=== PATIENT | male | born 1960 | race Caucasian/White ===

== ENCOUNTER 2018-10-08 07:11 | Emergency (ER) | payer MEDICAID, OTHER ==
[~2018-10-08] VITALS: Ht 175.3 cm; Wt 106.8 kg
[~2018-10-08 07:11] MED LIST: IBUP-1985 PO
[2018-10-08] MEDS ORDERED: BENZ-16 PO (08:10)
[2018-10-08] MEDS ORDERED: LEVO750T21 PO (08:10)
[2018-10-08 08:19] VITALS: BP 144/81
== END 2018-10-08 08:34 | disposition home or self-care (01) ==
LOC: ER 07:12
DX: J20.9 Acute bronchitis, unspecified (principal); Z90.49 Acquired absence of other specified parts of digestive tract; Z88.8 Allergy status to other drugs, medicaments and biological substances; Z79.899 Other long term (current) drug therapy
CPT/HCPCS: 93005; 99283

== ENCOUNTER 2020-09-05 12:52 | Inpatient (IN) | payer BC, MEDICAID, OTHER ==
[~2020-09-05] VITALS: Ht 175.3 cm; Wt 107.0 kg
[2020-09-05 15:06] LABS: BASOPHILS # (AUTO) 0.1 X10'3 (0-0.2); EOSINOPHILS # (AUTO) 0.3 X10'3 (0-0.9); EOSINOPHILS % (AUTO) 4.8 % (0-6); HEMATOCRIT 44.2 % (42.0-52.0); LYMPHOCYTES # (AUTO) 2.1 X10'3 (1.1-4.8); LYMPHOCYTES % (AUTO) 28.6 % (21-51); MEAN CORPUSCULAR HEMOGLOBIN 31.1 PG (27.0-31.0); MEAN CORPUSCULAR HGB CONC 34.9 g/dL (33.0-36.5); MEAN PLATELET VOLUME 7.8 FL (7.4-10.4); MONOCYTES # (AUTO) 0.5 X10'3 (0-0.9); MONOCYTES % (AUTO) 6.6 % (2-12); NEUTROPHILS # (AUTO) 4.3 X10'3 (1.8-7.7); PLATELET COUNT 335 X10'3 (140-440); RED BLOOD COUNT 4.97 X10'6 (4.70-6.10); RED CELL DISTRIBUTION WIDTH 13.3 % (11.5-14.5); WHITE BLOOD COUNT 7.2 X10'3 (4.5-11.0)
[2020-09-05 15:07] LABS: ALANINE AMINOTRANSFERASE 63 U/L (12-78); ALBUMIN 3.8 G/DL (3.4-5.0); ALBUMIN/GLOBULIN RATIO 1.1 (1.1-1.5); ALKALINE PHOSPHATASE 111 IU/L (46-116); ASPARTATE AMINO TRANSFERASE 32 U/L (10-37); BILIRUBIN,TOTAL 0.2 MG/DL (0.1-1.0); BLOOD UREA NITROGEN 19 MG/DL (7-18); BUN/CREATININE RATIO 18.1 (5.4-32.0); CALCIUM 9.3 MG/DL (8.5-10.1); CHLORIDE 105 MMOL/L (99-107); CREATININE 1.05 MG/DL (0.60-1.10); GLUCOSE 166 MG/DL (70-104); SODIUM 140 MMOL/L (135-145); TOTAL PROTEIN 7.4 G/DL (6.4-8.2); eGFR 72 ML/MIN
[2020-09-05 15:08] LABS: HEMOGLOBIN 15.4 g/dl (14.0-17.9)
[2020-09-05 15:14] LABS: ANION GAP 10 (8-16)
[2020-09-05] MEDS ORDERED: aspirin 325mg tablet PO ONE (15:25)
[2020-09-05] MEDS ORDERED: NO HOME MEDS (15:59)
[2020-09-05] MEDS ORDERED: normal saline 500ml IV soln 500 ML IV SCH (17:40)
[2020-09-05] MEDS ORDERED: nitroGLYCERIN 0.4mg SUBLingual tab SL PRN ×2 (17:40→17:55)
[2020-09-05] MEDS ORDERED: aminophylline 250mg/10ml inj. IV PRN (17:55)
[2020-09-05] MEDS ORDERED: regadenoson 0.4mg/5ml syringe IV PRN (17:55)
[2020-09-05] MEDS ORDERED: metoprolol tartrate 1mg/ml inj IV PRN (17:55)
[2020-09-05] MEDS ORDERED: magnesium Cl slow-release 64mg tablet PO PRN (20:10)
[2020-09-05] MEDS ORDERED: magnesium 4gm in 100ml NS 100 ML IV PRN (20:10)
[2020-09-05] MEDS ORDERED: potassium Cl 20 mEq SR tablet PO PRN ×2 (20:10)
[2020-09-05] MEDS ORDERED: magnesium 2GM in 50ml NS 50 ML IV PRN (20:10)
[2020-09-05] MEDS ORDERED: morphine 2 MG/ML inj. syringe IV PRN (20:10)
[2020-09-05] MEDS ORDERED: potassium Cl 40MEQ/1/2NS 520ml 520 ML IV PRN ×2 (20:10)
[2020-09-05 22:00] VITALS: BP 136/77
[2020-09-06] VITALS (8 sets, daily range): BP systolic 143–159; BP diastolic 81–94
[2020-09-06 02:36] LABS: BASOPHILS # (AUTO) 0.1 X10'3 (0-0.2); BASOPHILS % (AUTO) 1.1 % (0-1); EOSINOPHILS # (AUTO) 0.4 X10'3 (0-0.9); EOSINOPHILS % (AUTO) 6.3 % (0-6); HEMATOCRIT 41.5 % (42.0-52.0); HEMOGLOBIN 14.3 g/dl (14.0-17.9); LYMPHOCYTES # (AUTO) 2.3 X10'3 (1.1-4.8); LYMPHOCYTES % (AUTO) 32.3 % (21-51); MEAN CORPUSCULAR HEMOGLOBIN 30.4 PG (27.0-31.0); MEAN CORPUSCULAR HGB CONC 34.5 g/dL (33.0-36.5); MEAN CORPUSCULAR VOLUME 88.2 FL (78-98); MEAN PLATELET VOLUME 6.9 FL (7.4-10.4); MONOCYTES # (AUTO) 0.6 X10'3 (0-0.9); NEUTROPHILS # (AUTO) 3.6 X10'3 (1.8-7.7); NEUTROPHILS % (AUTO) 51.3 % (42-75); PLATELET COUNT 276 X10'3 (140-440); RED BLOOD COUNT 4.71 X10'6 (4.70-6.10); RED CELL DISTRIBUTION WIDTH 13.3 % (11.5-14.5)
[2020-09-06 02:57] LABS: ALBUMIN 3.3 G/DL (3.4-5.0); ANION GAP 12 (8-16); BLOOD UREA NITROGEN 18 MG/DL (7-18); BUN/CREATININE RATIO 17.3 (5.4-32.0); CALCIUM 8.3 MG/DL (8.5-10.1); CHLORIDE 104 MMOL/L (99-107); CHOL/HDL RATIO 13.5 (0.00-4.99); CHOLESTEROL 337 MG/DL (0-200); CREATININE 1.04 MG/DL (0.60-1.10); GLUCOSE 137 MG/DL (70-104); HDL CHOLESTEROL 25 MG/DL (35-60); LDL CHOLESTEROL 102 MG/DL (50-100); MAGNESIUM 2.2 MG/DL (1.5-2.4); SODIUM 139 MMOL/L (135-145); TOTAL CARBON DIOXIDE 23.5 MMOL/L (24-32); eGFR 73 ML/MIN
[2020-09-06 02:58] LABS: POTASSIUM 3.9 MMOL/L (3.5-5.1); TRIGLYCERIDES 1457 MG/DL (20-135)
--- NOTE | 2020-09-06 07:12 | NUR ---
Patient in room ORTHO 4013. I have received report from Danielle GILL and had the opportunity to ask questions and assume patient care.
[2020-09-06] MEDS ORDERED: heparin, porcine 5000 units/ml vial SQ SCH (08:00)
[2020-09-06] MEDS ORDERED: K and/or MAG REPLACEMENT MC SCH (08:00)
[2020-09-06] MEDS ORDERED: PERFLUTREN PROTEIN-A MICROSPHR 0.22 MG/ML 3ML VIAL IV ONE (12:00)
--- NOTE | 2020-09-06 14:22 | NUR ---
Paged Dr. Boles regarding inverted T wave for patient. Page Sent promotional table spacer PAGER ID: [phone] MESSAGE: Ortho/Neuro [id number] Billy Anne had EKG completed after stress test and has an inverted T-wave. We have no prior EKG to compare to. Brittany GILL [id number]
--- NOTE | 2020-09-06 15:31 | NUR ---
PIV removed, Cannula intact, no redness at site or discomfort. Telemetry removed. All belongings gathered and given to patient.Patient stable and in no distress. All needs met. Gave patient discharge information and education, patient was able to verbalize back information and education. Patient wheeled out in wheel chair to lobby. Patient left hospital with family member and in family private vehicle
== END 2020-09-06 15:25 | disposition home or self-care (01) | DRG 313 ==
LOC: ER 12:52 → ED HOLD 20:11 → ORTHO 4S 22:01
PROVIDERS: ADMIT Internal Medicine; ATTEND Internal Medicine
PROC: 4A02XM4 Measurement of Cardiac Total Activity, External Approach (ICD-10-PCS; principal; 2020-09-06)
PROC: 3E073KZ Introduction of Other Diagnostic Substance into Coronary Artery, Percutaneous Approach (ICD-10-PCS; 2020-09-06)
DX: R07.9 Chest pain, unspecified (principal); G47.30 Sleep apnea, unspecified; Z82.49 Family history of ischemic heart disease and other diseases of the circulatory system; Z90.49 Acquired absence of other specified parts of digestive tract; Z88.8 Allergy status to other drugs, medicaments and biological substances
CPT/HCPCS: 36415; 71045; 78452; 80048; 80053; 80061; 83735; 83880; 84484; 85025; 87081; 93005; 93017; 93306; 99285; A9500; G0378; J1644; J2785; J7040; Q9956

== ENCOUNTER 2023-07-11 10:35 | Outpatient (CLI) | payer OTHER | END 2023-07-11 23:59 | disposition home or self-care (01) | LOC: MRI 10:35 | PROVIDERS: ATTEND Family Medicine | DX: S33.5XXD Sprain of ligaments of lumbar spine, subsequent encounter (principal); M47.816 Spondylosis without myelopathy or radiculopathy, lumbar region; M48.07 Spinal stenosis, lumbosacral region; X58.XXXD Exposure to other specified factors, subsequent encounter | CPT/HCPCS: 72148 ==

== ENCOUNTER 2024-02-04 17:33 | Emergency (ER) | payer MEDICAID, OTHER ==
[~2024-02-04] VITALS: Ht 175.3 cm; Wt 109.6 kg
[2024-02-04 18:11] LABS: BASOPHILS % (AUTO) 0.7 % (0-1); EOSINOPHILS # (AUTO) 0.4 X10'3 (0-0.9); HEMATOCRIT 42.1 % (42.0-52.0); HEMOGLOBIN 14.6 g/dl (14.0-17.9); LYMPHOCYTES # (AUTO) 2.9 X10'3 (1.1-4.8); LYMPHOCYTES % (AUTO) 40.7 % (21-51); MEAN CORPUSCULAR HEMOGLOBIN 31.4 PG (27.0-31.0); MEAN CORPUSCULAR HGB CONC 34.8 g/dL (33.0-36.5); MEAN CORPUSCULAR VOLUME 90.4 FL (78-98); MEAN PLATELET VOLUME 7.8 FL (7.4-10.4); MONOCYTES # (AUTO) 0.6 X10'3 (0-0.9); MONOCYTES % (AUTO) 8.3 % (2-12); NEUTROPHILS # (AUTO) 3.2 X10'3 (1.8-7.7); NEUTROPHILS % (AUTO) 45.3 % (42-75); PLATELET COUNT 283 X10'3 (140-440); RED BLOOD COUNT 4.65 X10'6 (4.70-6.10); RED CELL DISTRIBUTION WIDTH 13.2 % (11.5-14.5); WHITE BLOOD COUNT 7.1 X10'3 (4.5-11.0)
[2024-02-04 18:36] LABS: ALANINE AMINOTRANSFERASE 68 U/L (12-78); ALBUMIN 3.7 G/DL (3.4-5.0); ALBUMIN/GLOBULIN RATIO 1.1 (1.1-1.5); ALKALINE PHOSPHATASE 103 IU/L (46-116); ANION GAP 8 (8-16); BILIRUBIN,TOTAL 0.4 MG/DL (0.1-1.0); BLOOD UREA NITROGEN 20 MG/DL (7-18); BUN/CREATININE RATIO 21.3 (10.0-20.0); CALCIUM 8.8 MG/DL (8.5-10.1); CHLORIDE 102 MMOL/L (99-107); CREATININE 0.94 MG/DL (0.60-1.10); GLUCOSE 166 MG/DL (70-104); POTASSIUM 4.1 MMOL/L (3.5-5.1); PRO BRAIN NATRIURETIC PEPTIDE 30 PG/ML (0-125); SODIUM 135 MMOL/L (135-145); TOTAL CARBON DIOXIDE 25.5 MMOL/L (24-32); TOTAL PROTEIN 7.2 G/DL (6.4-8.2); eCRCL 80 ML/MIN; eGFR 81 ML/MIN
[2024-02-04 18:44] LABS: ASPARTATE AMINO TRANSFERASE 21 U/L (10-37)
[2024-02-04 19:22] VITALS: BP 143/82; PULSE 71; RESP 16; TEMP 99; O2SAT 95
== END 2024-02-04 19:25 | disposition home or self-care (01) ==
LOC: ER 17:34
DX: R53.81 Other malaise (principal); G47.30 Sleep apnea, unspecified; Z88.8 Allergy status to other drugs, medicaments and biological substances; Z90.49 Acquired absence of other specified parts of digestive tract
CPT/HCPCS: 36415; 71045; 80053; 83880; 84484; 85025; 93005; 99285